=== PATIENT | female | born 1960 | race Caucasian/White ===

== ENCOUNTER → 2016-08-26 | Outpatient (CLI) | payer BC ==
[~2016-08-26] MED LIST: ASCO500T16 PO; CHOL100027 PO; GLUC500C60 PO; LEVO50TA PO; MULT-506 PO; VIT B COMPLEX PO
== END | disposition home or self-care (01) ==
LOC: C.CPL 14:32
PROVIDERS: ATTEND Orthopaedic Surgery
DX: M22.41 Chondromalacia patellae, right knee (principal)

== ENCOUNTER → 2016-11-03 | Outpatient (CLI) | payer BC ==
--- NOTE | 2016-11-03 17:58 | DIAGNOSTIC IMAGING REPORT ---
Venous Doppler right leg RIGHT VENOUS DOPP LOWER EXT UNILAT CLINICAL HISTORY: RIGHT CALF PAIN; R/O DVT Right TECHNIQUE: Venous Doppler COMPARISON STUDY: None FINDINGS: Normal study IMPRESSION: Normal study Electronically signed by: Norm Shields M.D. 11/03/2016 5:57 PM Dictated Date/Time: 11/03/2016 5:56 PM
== END | disposition home or self-care (01) ==
LOC: C.ULTR 16:55
PROVIDERS: ATTEND Physician Assistant
DX: M79.661 Pain in right lower leg (principal)